=== PATIENT | male | born 1940 | race Caucasian/White ===

== ENCOUNTER → 2019-04-05 09:08 | Outpatient (CLI) | payer MEDICARE, OTHER, SELFPAY ==
--- NOTE | 2019-04-05 | DI.US.S_ITS ---
PROCEDURE: US RENAL COMPLETE INDICATIONS: KIDNEY STONE TECHNIQUE: Real-time scanning was performed of the kidneys and bladder, with image documentation. COMPARISON: None. FINDINGS: Kidneys: Kidneys are normal in size. Right kidney measures 10.9 cm long; left kidney measures 11.4 cm long. Right renal cortical thickness is 1.3 cm; left renal cortical thickness is 1.3 cm. Renal cortical echotexture is normal. No hydronephrosis or nephrolithiasis. No suspicious solid mass lesions. However, the left kidney demonstrates a mildly nodular contour. Bladder: Pre-void bladder volume is 328 mL. Post-void residual is 49 mL. Pre-void images demonstrate no intraluminal masses or stones. On pre-void images, both ureteral jets are noted with color Doppler interrogation. (Of note, ureteral jets may not be detectable in up to 25% of cases due to insufficient differences in specific gravity between ureteral and bladder urine). Miscellaneous: No free pelvic fluid. The prostate is prominent measuring 103 cc in volume. The prostate protrudes into the bladder. The prostate appears heterogeneous, with areas of likely calcification, with the largest measuring up to 1.2 cm. IMPRESSION: No kidney stones are seen. No hydronephrosis. Moderate postvoid residual, 49 cc. Prominent prostate. Dictated by: Silvano Moore M.D. on 04/05/2019 at 11:09 Approved by: Silvano Moore M.D. on 04/05/2019 at 11:10
== END ==
PROVIDERS: PCP Family Medicine; Visit Provider Urology
DX: N20.0 Calculus of kidney (principal); N40.0 Benign prostatic hyperplasia without lower urinary tract symptoms
CPT/HCPCS: 76770

== ENCOUNTER → 2020-05-19 10:25 | Outpatient (CLI) | payer MEDICARE, OTHER, SELFPAY ==
--- NOTE | 2020-05-19 | DI.RAD.S_ITS ---
PROCEDURE: XR KUB INDICATIONS: Calculus of kidney TECHNIQUE: One view of the abdomen acquired. COMPARISON: None. FINDINGS: Surgical changes and devices: Right upper quadrant cholecystectomy clips. Bowel: Bowel gas pattern is normal except for asymmetric [id number]-left colonic obstipation. Soft tissues: No suspicious abdominal calcifications. Visualized solid organ contours appear normal in size. Bones: No suspicious bony lesions. IMPRESSION: Mild colonic obstipation greater on the right than the left, prior cholecystectomy. Dictated by: Enrique Gonzalez M.D. on 05/19/2020 at 11:48 Approved by: Enrique Gonzalez M.D. on 05/19/2020 at 11:49
== END ==
PROVIDERS: PCP Family Medicine; Referring Provider Urology; Visit Provider Urology
DX: N20.0 Calculus of kidney (principal); K59.00 Constipation, unspecified; Z90.49 Acquired absence of other specified parts of digestive tract
CPT/HCPCS: 74018